=== PATIENT | female | born 1960 | race Caucasian/White ===

== ENCOUNTER → 2016-10-04 | Outpatient (CLI) | payer OTHER ==
[~2016-10-04] MED LIST: ACTOS PO; AVAPRO PO; DIAZEPAM PO; GLUCOTROL PO; HCTZ PO; IBUPROFEN; LANTUS100 U/ML SQ; LIPITOR PO; LORTAB 7.5-5001 TAB PO
--- NOTE | ~2016-10-04 | MY29 ---
[facility] A Service of [facility] RADIOLOGY TEXT RESULTS PATIENT: ODETTE GLEASON LOCATION: [facility] : 64 UNIT #: [id number] AGE: [address]: Mitesh Jara MD SEX: F ORDER DR: [id number] [facility]. [place], [place] [address] [id number] O MR#: [id number] Acc #: [id number] NAME: ODETTE GLEASON : 1960 SEX: F STUDY DATE/TIME: 10/04/2016 9:20 UNIT: [facility] ROOM: STUDY DESCRIPTION: MY ODALYS SCREENING W/ CAD BILAT Attending Physician: Mitesh Jara M.D. Ordering Physician: Mitesh Jara M.D. Primary Care Physician: Mitesh Jara M.D. MEDICAL IMAGING REPORT This report is preliminary unless electronic signature is present EXAM Digital screening mammogram, 10/04/2016 HISTORY 56-year-old woman no risk elevation. Annual screening. COMPARISON Mammograms date to 10/22/2007 with most recent 10/03/2015. FINDINGS Digital imaging of each breast was completed utilizing a two-view examination of each breast in craniocaudal and mediolateral-oblique projections. Review and interpretation of digital mammograms include a second review in conjunction with FDA-approved CAD device. There is a normal parenchymal presentation bilaterally consistent with the patient's age. There are no breast masses imaged and no parenchymal asymmetry is visualized. There are no suspicious microcalcifications and I see no focal architectural disturbance. IMPRESSION Negative screening digital mammogram. One-year followup recommended. Patients over the age of 40 are entered into a reminder system with target due date for the next mammogram. A result letter will also be sent to the patient. BIRADS: 1 Negative Dictated by... Harry Haider M.D. THIS IS AN ELECTRONICALLY VERIFIED REPORT Harry Haider M.D. at 10/04/2016 2:19 PM [facility] A Service of [facility] RADIOLOGY TEXT RESULTS PATIENT: ODETTE GLEASON LOCATION: [facility] : 64 UNIT #: [id number] AGE: [address]: Mitesh Jara MD SEX: F ORDER DR: KERVIN/tyrese TD: 10/04/2016 11:11 JOB #: [id number] MEDICAL IMAGING REPORT Page 1 of 1 COPY
== END | disposition home or self-care (01) ==
LOC: CWCC 09-20 09:45
DX: Z12.31 Encounter for screening mammogram for malignant neoplasm of breast (principal)
CPT/HCPCS: G0202